=== PATIENT | male | born 1955 | race Caucasian/White ===

== ENCOUNTER → 2021-12-27 | Outpatient (CLI) | payer OTHER, SELFPAY ==
[2021-12-27 10:33] LABS: Vitamin D,25 Hydroxy 27.1 ng/mL
[2021-12-27 10:41] LABS: Anion Gap 2 (5-15); BUN 16 mg/dL (7-18); BUN/Creat Ratio 17.6 RATIO (10-20); Calcium,Total 9.4 mg/dL (8.5-10.1); Chloride 104 mmol/L (98-107); Cholesterol 163 mg/dL (200); Creatinine, Serum 0.91 mg/dL (0.70-1.30); EST Glomerular Filtration Rate 89 mL/min (>60); Est Glom Filt Rate - Afr Amer 108 mL/min (>60); Glucose 104 mg/dL (74-106); High Density Lipoprotein 46 mg/dL; PSA,Total - Annual Screen 0.88 ng/mL (0.00-4.00); Potassium 4.4 mmol/L (3.5-5.1); Sodium Level 136 mmol/L (136-145); Triglycerides 85 mg/dL; Very Low Density Lipoprotein 17 mg/dL (5-40)
== END | disposition home or self-care (01) ==
LOC: MFPLAB 09:17
PROVIDERS: PCP Family Medicine; Referring Provider Family Medicine; Visit Provider Family Medicine
DX: E55.9 Vitamin D deficiency, unspecified (principal); Z13.1 Encounter for screening for diabetes mellitus; Z13.220 Encounter for screening for lipoid disorders; Z12.5 Encounter for screening for malignant neoplasm of prostate
CPT/HCPCS: 36415; 80048; 80061; 82306; 84153; G0103

== ENCOUNTER 2022-02-04 08:10 | Day surgery (SDC) | payer OTHER, SELFPAY ==
--- NOTE | 2022-02-02 12:51 | EKG12_ITS ---
Test Reason : PRE-OP Blood Pressure : / mmHG Vent. Rate : 052 BPM Atrial Rate : 052 BPM P-R Int : 144 ms QRS Dur : 094 ms QT Int : 408 ms P-R-T Axes : 056 -18 037 degrees QTc Int : 379 ms Sinus bradycardia Otherwise normal ECG Confirmed by HE ESPINOZA, BETHANY ([id number]), advertising editor HERNANDO WASHINGTON ([id number]) on 02/03/2022 11:21:48 AM Referred By: Александр Burnett Confirmed By:BETHANY CUTLER MD
[2022-02-02 13:29] LABS: Hematocrit 41.1 % (40-54); Mean Corp Hgb Conc 34.1 g/dL (32-36); Mean Corpuscular Hgb 31.3 pg (27.0-32.0); Mean Corpuscular Volume 91.9 fL (80-94); Mean Platelet Vol. 9.2 fl (6.2-12.0); Platelet Count 256 K/mm3 (150-450); RBC Distribution Width CV 12.4 % (11.6-14.6); RBC Distribution Width SD 42.1 fl (35.1-43.9); Red Blood Count 4.47 M/mm3 (4.6-6.2); White Blood Count 4.2 K/mm3 (4.4-11.0)
[2022-02-02 13:52] LABS: Anion Gap 4 (5-15); BUN 19 mg/dL (7-18); BUN/Creat Ratio 18.8 RATIO (10-20); Chloride 103 mmol/L (98-107); Creatinine, Serum 1.01 mg/dL (0.70-1.30); EST Glomerular Filtration Rate 79 mL/min (>60); Est Glom Filt Rate - Afr Amer 96 mL/min (>60); Glucose 131 mg/dL (74-106); Potassium 4.1 mmol/L (3.5-5.1); Sodium Level 135 mmol/L (136-145)
[2022-02-04] VITALS (7 sets, daily range): BP systolic 111–123; BP diastolic 52–67; PULSE 51–58; RESP 16–18; TEMP 36–36.8; O2SAT 95–100; BMI 28.4
[2022-02-04] MEDS: Lactated Ringers 1,000 ML 15 ML IV ×3 (09:06→12:42)
--- NOTE | 2022-02-04 09:56 | HP.PCM_ITS ---
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 Is patient in pain?: No Allergies azithromycin Adverse Reaction (Verified 01/11/22 13:31) Diarrhea Medications ascorbate calcium (vitamin C) 500 mg tablet 500 mg PO DAILY 01/11/22 [History Confirmed 01/11/22] cholecalciferol (vitamin D3) 50 mcg (2,000 unit) capsule 50 mcg PO DAILY 01/11/22 [History Confirmed 01/11/22] coenzyme Q10 30 mg capsule (Co Q-10) 30 mg PO DAILY 01/11/22 [History Confirmed 01/11/22] tamsulosin 0.4 mg capsule (Flomax) 0.4 mg PO QHS #30 caps 01/11/22 [Rx Confirmed 01/11/22] zinc sulfate 50 mg zinc (220 mg) capsule (Orazinc) 50 mg PO DAILY 01/11/22 [History Confirmed 01/11/22] PFSH Family History?(Updated 01/11/22 @ 13:14 by Clarisa Monday) Mother Cancer ?? ? ovarianFather Cancer ?? ? stomach/liver Social History?(Updated 01/11/22 @ 13:29 by Clarisa Monday) Smoking Status:? Never smoker alcohol intake:? current details:? occasional substance use type:? does not use HPI HPI HPI: 66-year-old gentleman who is referred by Dr. Ángel Borja for surgical consultation regarding suspected bilateral inguinal hernias and a written copy of my surgical consult recommendations will be returned to him.? By referral report the patient's had these hernias for multiple years.? Left larger than the right.? He does wear a binder as to assist.? He states that over the past 20 years the hernias have become worse.? 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 This does occasionally require significant lifting.? The patient currently is wearing a bilateral groin truss.? He states that he is comfortable when he is wearing this but more uncomfortable if not.? He notes that he has had a history of varicocele left groin.? No previous abdominal or groin surgery.? He does not make particular note of an umbilical hernia but he has 1 as well.? He remains physically very active. ROS General General: No weight change, appetite, fatigue, colon cancer, breast cancer or weakness HEENT HEENT: No difficulty swallowing, eye injury, eye surgery, swollen glands or hoarseness Endo Endocrine: No thyroid disease, diabetes mellitus, thyroid cancer, Hair loss, heat intolerance or cold intolerance Skin Skin: No rash or changing moles Musc Musculoskeletal: No back problems, arthritis, rheumatoid arthritis, gout or join t pain Cardio Cardiovascular: No murmur, pacemaker, heart disease, atrial fibrillation, high blood pressure, heart attack, heart stent, palpitations, shortness of breat with exertion or chest pain Psych Psychiatric: No depression, anxiety or hearing voices Resp Respiratory: No shortness of breath, No sleep apnea, No cough, No COPD, No asthma, No emphysema and No wheezing Gastro Gastrointestinal: No abdominal pain, No nausea or vomiting, No diarrhea, No constipation, No blood in stool, No acid reflux, No hemorrhoids, No ulcers, No gallbladder problem and No black,tarry stools Jaylan Hematologic: No blood thinners, No blood disorders, No bleeding, No anemia and No blood clots Neuro Neurologic: No system reviewed and no additional complaints, except as documented, No as per HPI, No abnormal gait, No abnormal hearing, No abnormal movements, No abnormal speech, No behavioral changes, No burning sensations, No confusion, No convulsions, No disequilibrium, No dizziness, No localized weakness, No frequent falls, No headache(s), No lack of coordination, No loss of vision, No memory loss, No numbness, No other visual disturbances, No radicular pain, No restless legs, No sensory deficit, No syncope, No tingling, No tremor(s), No weakness and No other Exam Const General: cooperative, healthy appearing, comfortable and no acute distress [facility] Head: normal to inspection Eyes General: appearance normal, both eyes and all related structures Neck Neck: normal visual inspection Chest Chest palpation & inspection: normal inspection of the chest Resp Effort & Inspection: normal respiratory effort Auscultation: clear to auscultation bilaterally Cardio Rate: regular rate Rhythm: regular rhythm GI Palpation: soft and no hepatosplenomegaly Other: Umbilical hernia, small defect, still reducible Other: Bilateral inguinal hernias, prominent when upright, mostly reducible. No testicular masses.? Varicoceles noted on the left nontender Musc Cervical Spine: normal cervical lordosis Skin General: no rashes or lesions noted Neuro General: patient alert, patient awake and patient oriented x3 Extrem General: no calf tenderness Psych Appearance: grossly normal Assessment and Plan Assessment and Plan (1) Bilateral inguinal hernia without obstruction or gangrene: ?Status:?Acute (2) Umbilical hernia without obstruction or gangrene: ?Status:?Acute ?Plan: Very healthy and vigorous 66-year-old gentleman.? I propose for him a umbilical herniorrhaphy combined with a laparoscopic bilateral inguinal herniorrhaphy with mesh.? Continue to tell I have described the technique, benefit, risk, alternatives.? He has had an opportunity to ask and have questions answered.? We will initiate him on tamsulosin 0.4 mg nightly preoperatively and attempt to try to avoid postoperative urinary retention.? The patient states that he occasionally has nocturia x1. He is aware that he will need to allow postoperative time for resolution.? He states that the winter months are better in that regard. I did discuss with him possibly some Etelosaving work.? His referral source was [facility]. Copy: Dr. Ángel Burnett M.D., F.A.C.S. ? ? ? Medications: New tamsulosin (Flomax) 0.4 mg? PO QHS 30 caps 1RF I have examined the patient and the H&P has been reviewed. There are no clinical changes since date of exam. Александр Burnett M.D., F.A.C.S.
[2022-02-04] MEDS: Cefazolin 2 GM in 0.9% Normal Saline 100 ML IV (10:09)
[2022-02-04] MEDS: Bupivacaine 0.25% 30 ML Vial (10:09)
--- NOTE | 2022-02-04 10:13 | DCINST_ITS ---
Discharge Instructions Procedure General Surgery Diet Discharge Diet: Light diet - advance as tolerated (if you have questions about your diet instructions, please talk to you doctor.) Activity Discharge Activity: May Not Drive (for 3-5 days or while taking narcotic pain medicine.) May shower in (days): 1 Lifting Restrictions: 10 pounds Dressing / Incision Call your doctor if your incision/area has: Continuous Slow Oozing, Sudden Increased Bleeding, Increased Pain/ Swelling, Increased Redness and Foul Smelling Discharge Call your doctor if you observe: Fever of 101 or Higher Suture Line Care: Avoid Pulling/Pushing and Avoid Pinching/Bending Additional Dressing/Incision Instructions:: Change or remove dressing in 4 days. Leave steri-strips in place for 1 week. Follow Up Care Please Follow Up With: Александр Burnett MD When: Call [phone] to make an appointment to be seen in about 10 days. Test Results: Test results from this visit will be discussed in further detail at your follow- up appointment, if applicable. Discharge Plan Admission Attending Provider: Александр Burnett Primary Care Provider: James Borja Discharge Orders/Prescriptions Prescriptions: No Action cholecalciferol (vitamin D3) 50 mcg (2,000 unit) capsule 50 mcg PO DAILY ascorbate calcium (vitamin C) 500 mg tablet 500 mg PO DAILY zinc sulfate [Orazinc] 50 mg zinc (220 mg) capsule 50 mg PO DAILY coenzyme Q10 [Co Q-10] 30 mg capsule 30 mg PO DAILY tamsulosin [Flomax] 0.4 mg capsule 0.4 mg PO QHS Qty: 30 1RF Referrals / Follow Up: James Borja MD [Primary Care Provider] - Disposition Disposition (needs filled in before D/C Order can be placed): Home, Self Care
--- NOTE | 2022-02-04 12:12 | PCM.OPRPT ---
Report of Operation Date of Procedure: 02/04/22 Pre-Operative Diagnosis: Bilateral indirect inguinal hernias Umbilical hernia Post-Operative Diagnosis: Same Surgery/Procedure Performed:: Laparoscopic bilateral inguinal herniorrhaphy and umbilical herniorrhaphy Bard 3D max mesh right lot number [id number], reference [id number], expiry date 05/17/2026 Bard 3D max mesh left lot number [id number], reference [id number], expiry date 10/17/[address] hernia patch Lot number [id number], reference [id number], expiry date 06/18/2023 Description of Surgical Findings:: Timeout and informed consent was obtained. 65-year-old gentleman was taken to the operating placed upon the table underwent general endotracheal intubation esthesia Ancef 2 g were given intravenously the abdomen groins were sterilely prepped and draped 0.25% Marcaine was used as a local anesthetic skin sites were pretty anesthetized with a total of 30 cc was used a curvilinear incision was made at the inferior portion of the umbilicus sharp and blunt dissection performed an umbilical hernia was identified the umbilical skin was carefully dissected free fascial edges were secured with 0 Vicryl and elevated and a varies needle inserted the abdomen was insufflated with CO2 to a pressure of 10 mmHg pressure 10 mm trocar inserted. 10 mm laparoscope inserted. No evidence of any trocar injuries. 5 mm trochars were placed in the right and left lower quadrants. Under laparoscopic control bilateral ileal inguinal nerve blocks were performed. The peritoneum superior and lateral to the internal ring on the right was incised carried medially a sizable indirect sac was encountered tediously this was sharply and bluntly dissected free where needed hemostasis was obtained with electrocautery and Hem-o-carlos alberto clips finally the sac was completely inverted and the direct indirect and femoral area cleanly identified a similar process was performed on the left however the defect on the left much more diminutive. The blunt dissection instituted retropubically the urinary bladder was mobilized. Then a Bard 3D max large right-sided mesh was placed it was secured superiorly medially and laterally with secure strap a similar large mesh was placed on the left and this just met the mesh on the right and the middle and again it was secured with secure strap excellent positioning and securement of each mesh was achieved the peritoneum was then approximated to itself to close the defect areas and this was done with secure strap and Hem-o-carlos alberto clips complete obliteration to the mesh was achieved the abdomen was allowed to deflate of the CO2 a preperitoneal space was created a 4.[address] mesh was placed into the preperitoneal space the tails were secured with interrupted 0 Nurolon the fascia was approximated transversely for the same I then reinspected that intra-abdominal and it appeared that the peritoneum completely covered the mesh. The abdomen was again was allowed to deflate of the CO2. Skin edges were approximated opted for Monocryl subdermal stitches. Surgical glue was applied at the umbilicus Steri-Strips Telfa OpSite's as needed sponge instrument and needle counts were reported to the surgeon to be correct. Specimens none. Drains none. Blood loss minimal. The patient was taken to the recovery room in satisfactory addition without apparent complication Александр Burnett M.D., F.A.C.S. Surgeon: Александр Burnett Type of Anesthesia: General Anesthesiologist: Scot Wisdom
[2022-02-04] MEDS: Sugammadex Sodium 200 MG/2 ML VIAL IV (12:15)
== END 2022-02-04 15:07 | disposition home or self-care (01) ==
LOC: SDC 08:23 → AC 08:23
PROVIDERS: PCP Family Medicine; Referring Provider Surgery; Visit Provider Surgery
PROC: (CPT 49650; principal; 2022-02-04 09:55)
DX: K40.20 Bilateral inguinal hernia, without obstruction or gangrene, not specified as recurrent (principal); K42.9 Umbilical hernia without obstruction or gangrene
CPT/HCPCS: 49505; 49585; 49659; 36415; 80048; 85027; 93005; J7120; C1781; J2405